=== PATIENT | male | born 1965 | race African-American/Black ===

== ENCOUNTER 2019-11-16 14:23 | Emergency (ER) | payer OTHER ==
[~2019-11-16] VITALS: Ht 185.4 cm; Wt 95.3 kg
[2019-11-16] MEDS ORDERED: PROAIR HFA8.5 GM INH (14:39)
[2019-11-16] MEDS ORDERED: REMERON 30 MG T30 M1 PO (14:39)
[2019-11-16] MEDS ORDERED: NORCO 5-325 TA1 EAC1 PO (16:51)
[2019-11-16 17:00] VITALS: BP 165/95
== END 2019-11-16 17:00 | disposition home or self-care (01) ==
LOC: ER 14:23
DX: S06.890A Other specified intracranial injury without loss of consciousness, initial encounter (principal); M54.9 Dorsalgia, unspecified; M25.532 Pain in left wrist; M25.531 Pain in right wrist; M54.2 Cervicalgia; W00.0XXA Fall on same level due to ice and snow, initial encounter; Y93.89 Activity, other specified; Y92.89 Other specified places as the place of occurrence of the external cause; Y99.8 Other external cause status